=== PATIENT | female | born 1965 | race Caucasian/White ===

== ENCOUNTER 2017-05-24 20:55 | Inpatient (IN) | payer BC, OTHER ==
[~2017-05-24] VITALS: Ht 165.1 cm; Wt 129.7 kg
[2017-05-24] MEDS ORDERED: ASPI81TA28 PO (21:27)
[2017-05-24] MEDS ORDERED: GLC/500 PO (21:27)
[2017-05-24] MEDS ORDERED: ESCI1TAB10 PO (21:27)
[2017-05-24] MEDS ORDERED: ATOR-24 PO (21:27)
[2017-05-24] MEDS ORDERED: CLOP1TAB15 PO (21:27)
[2017-05-24] MEDS ORDERED: METO25TA56 PO (21:27)
[2017-05-24] MEDS ORDERED: RANO500T PO (21:27)
[2017-05-24 21:34] LABS: BASO % 0.3 %; BASO ABS # 0.02 K/uL (0-0.2); COMPLETE YES; EOS % 1.4 %; HEMATOCRIT 39.5 % (37-47); LYMPH % 35.1 %; LYMPH ABS # 2.58 K/uL (1.2-3.4); MEAN CORPUSCULAR HEMOGLOBIN 29.4 pg (25-34); MEAN CORPUSCULAR HGB CONC 32.7 g/dl (32-36); MEAN PLATELET VOLUME 9.5 fL (7.4-10.4); MONO % 9.3 %; NEUT % 53.9 %; PLATELET COUNT 227 K/uL (130-400); RED BLOOD COUNT 4.39 M/uL (4.2-5.4); WHITE BLOOD COUNT 7.35 K/uL (4.8-10.8)
--- NOTE | 2017-05-24 21:39 | DIAGNOSTIC IMAGING REPORT ---
CHEST ONE VIEW PORTABLE CLINICAL HISTORY: Chest pain. Altered mental status. COMPARISON STUDY: No previous studies for comparison. FINDINGS: Study is mildly compromised by suboptimal penetration. No pneumothorax or pleural effusion is present. Note is made of borderline cardiomegaly. There is no evidence of pulmonary edema. IMPRESSION: 1. No acute cardiopulmonary findings. 2. Borderline cardiomegaly. Electronically signed by: Gabriel Tovar M.D. 05/24/2017 9:38 PM Dictated Date/Time: 05/24/2017 9:36 PM
[2017-05-24 21:52] LABS: CALCIUM 8.6 mg/dl (8.5-10.1); CREATININE 1.1 mg/dl (0.60-1.20); POTASSIUM 4.1 mmol/L (3.5-5.1)
[2017-05-24 21:57] LABS: ALB/GLOB RATIO 0.9 (0.9-2); CKMB/CK RATIO 0.7 (0-3.0)
[2017-05-24 22:43] LABS: PROTHROMBIN TIME (PATIENT) 10.5 SECONDS (9.0-12.0)
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
[2017-05-24] MEDS ORDERED: NITROGLYCERIN 0.4 MG SL PER TAB CHARGE SL PRN (23:15)
[2017-05-24] MEDS ORDERED: MoRPHine SULFATE 2 MG/ML CARP IV PRN (23:15)
[2017-05-25] VITALS (7 sets, daily range): BP systolic 107–124; BP diastolic 73–80; PULSE 59–73; TEMP 36.6–36.8; O2SAT 95–97; Ht 165.1 cm; Wt 129.7 kg
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
[2017-05-25] MEDS: HEPARIN SOD 5000 UNIT/0.5 ML CARP SQ SCH ×2 (05:45→14:00)
[2017-05-25] MEDS ORDERED: METOPROLOL TARTRATE 25 MG TAB PO SCH (09:00)
[2017-05-25] MEDS ORDERED: RANOLAZINE 500 MG ER TAB PO SCH (09:00)
[2017-05-25] MEDS ORDERED: ASPIRIN 81 MG ECTAB PO SCH (09:00)
[2017-05-25] MEDS ORDERED: CLOPIDOGREL BISULFATE 75 MG TAB PO SCH (09:00)
[2017-05-25 09:22] LABS: BASO % 0.3 %; BASO ABS # 0.02 K/uL (0-0.2); COMPLETE YES; EOS % 1.5 %; HEMATOCRIT 38.4 % (37-47); IG% 0.3 %; LYMPH ABS # 2.33 K/uL (1.2-3.4); MEAN CELL VOLUME 89.7 fL (80-100); MEAN CORPUSCULAR HEMOGLOBIN 29.7 pg (25-34); MEAN CORPUSCULAR HGB CONC 33.1 g/dl (32-36); MEAN PLATELET VOLUME 9.3 fL (7.4-10.4); MONO % 7.5 %; NEUT % 52.4 %; PLATELET COUNT 199 K/uL (130-400); RED BLOOD COUNT 4.28 M/uL (4.2-5.4); WHITE BLOOD COUNT 6.13 K/uL (4.8-10.8)
[2017-05-25 09:52] LABS: BUN/CREATININE RATIO 17.8 (10-20); CALCIUM 8.4 mg/dl (8.5-10.1); CREATININE 0.91 mg/dl (0.60-1.20); POTASSIUM 3.8 mmol/L (3.5-5.1)
[2017-05-25] MEDS ORDERED: NTRSLP4 SL (14:26)
--- NOTE | 2017-05-25 14:31 | Discharge Instructions ---
Discharge Instructions Date of Service May 25, 2017. Admission Reason for Admission: Substernal Chest Pain Discharge Discharge Diagnosis / Problem: Chest pain Discharge Goals Goal(s): Improve disease control, Diagnostic testing, Therapeutic intervention Activity Recommendations Activity Limitations: as noted below Lifting Limitations: none Exercise/Sports Limitations: as tolerated (to limits set previously by your Wheel Shop Supervisor) Shower/Bathe: no limitations Driving or Machine Use: no limitations . Instructions / Follow-Up Instructions / Follow-Up You were admitted with chest pain. You had normal blood work and did NOT have a heart attack. Your chest xray was normal and you had a blood test called a D- dimer that was normal, making it not likely at all that you have a blood clot in your lungs either. You were seen by the Wheel Shop Supervisor who did not feel you needed any further testing of your heart. You should make sure you start taking your metoprolol in the evenings since you were not previously. Also, please work on avoiding highly stressful situations that bring on anxiety. Please follow up with your Wheel Shop Supervisor and your family doctor upon return to [place] in the next week. Current Hospital Diet Patient's current hospital diet: AHA Diet (Heart Healthy), Diabetes Type 2 Diet Discharge Diet Recommended Diet: AHA Diet (Heart Healthy), Diabetes Type 2 Diet Procedures Procedures Performed: Chest xray Pending Studies Studies pending at discharge: no Laboratory Results Last 24 Hours Test 05/24/17 21:20 05/24/17 21:26 05/24/17 22:02 05/25/17 00:53 White Blood Count 7.35 K/uL Red Blood Count 4.39 M/uL Hemoglobin 12.9 g/dL Hematocrit 39.5 % Mean Corpuscular Volume 90.0 fL Mean Corpuscular Hemoglobin 29.4 pg Mean Corpuscular Hemoglobin Concent 32.7 g/dl Platelet Count 227 K/uL Mean Platelet Volume 9.5 fL Neutrophils (%) (Auto) 53.9 % Lymphocytes (%) (Auto) 35.1 % Monocytes (%) (Auto) 9.3 % Eosinophils (%) (Auto) 1.4 % Basophils (%) (Auto) 0.3 % Neutrophils # (Auto) 3.97 K/uL Lymphocytes # (Auto) 2.58 K/uL Monocytes # (Auto) 0.68 K/uL Eosinophils # (Auto) 0.10 K/uL Basophils # (Auto) 0.02 K/uL RDW Standard Deviation 42.4 fL RDW Coefficient of Variation 13.0 % Immature Granulocyte % (Auto) 0.0 % Immature Granulocyte # (Auto) 0.00 K/uL Sodium Level 142 mmol/L Potassium Level 4.1 mmol/L Chloride Level 109 mmol/L Carbon Dioxide Level 26 mmol/L Anion Gap 7.0 mmol/L Blood Urea Nitrogen 20 mg/dl Creatinine 1.10 mg/dl Est Creatinine Clear Calc Drug Dose 83.0 ml/min Estimated GFR () 67.8 Estimated GFR (Non- 58.5 BUN/Creatinine Ratio 18.0 Random Glucose 111 mg/dl Calcium Level 8.6 mg/dl Total Bilirubin 0.3 mg/dl Aspartate Amino Transf (AST/SGOT) 25 U/L Alanine Aminotransferase (ALT/SGPT) 40 U/L Alkaline Phosphatase 87 U/L Total Creatine Kinase 150 U/L Creatine Kinase MB 1.1 ng/ml Creatine Kinase MB Ratio 0.7 Total Protein 7.1 gm/dl Albumin 3.4 gm/dl Globulin 3.7 gm/dl Albumin/Globulin Ratio 0.9 Bedside Troponin I < 0.030 ng/ml Prothrombin Time 10.5 SECONDS Prothromb Time International Ratio 1.0 Activated Partial Thromboplast Time 26.3 SECONDS Partial Thromboplastin Ratio 1.0 Troponin I < 0.015 ng/ml Test 05/25/17 06:53 05/25/17 07:15 05/25/17 09:07 05/25/17 11:08 Troponin I < 0.015 ng/ml Bedside Glucose 127 mg/dl 115 mg/dl White Blood Count 6.13 K/uL Red Blood Count 4.28 M/uL Hemoglobin 12.7 g/dL Hematocrit 38.4 % Mean Corpuscular Volume 89.7 fL Mean Corpuscular Hemoglobin 29.7 pg Mean Corpuscular Hemoglobin Concent 33.1 g/dl Platelet Count 199 K/uL Mean Platelet Volume 9.3 fL Neutrophils (%) (Auto) 52.4 % Lymphocytes (%) (Auto) 38.0 % Monocytes (%) (Auto) 7.5 % Eosinophils (%) (Auto) 1.5 % Basophils (%) (Auto) 0.3 % Neutrophils # (Auto) 3.21 K/uL Lymphocytes # (Auto) 2.33 K/uL Monocytes # (Auto) 0.46 K/uL Eosinophils # (Auto) 0.09 K/uL Basophils # (Auto) 0.02 K/uL RDW Standard Deviation 43.0 fL RDW Coefficient of Variation 13.2 % Immature Granulocyte % (Auto) 0.3 % Immature Granulocyte # (Auto) 0.02 K/uL D-Dimer 360 ug/L FEU Sodium Level 142 mmol/L Potassium Level 3.8 mmol/L Chloride Level 109 mmol/L Carbon Dioxide Level 27 mmol/L Anion Gap 6.0 mmol/L Blood Urea Nitrogen 16 mg/dl Creatinine 0.91 mg/dl Est Creatinine Clear Calc Drug Dose 100.5 ml/min Estimated GFR () 85.3 Estimated GFR (Non- 73.6 BUN/Creatinine Ratio 17.8 Random Glucose 117 mg/dl Calcium Level 8.4 mg/dl Magnesium Level 2.0 mg/dl Medical Emergencies . Who to Call and When: Medical Emergencies: If at any time you feel your situation is an emergency, please call 911 immediately. . Non-Emergent Contact Non-Emergency issues call your: Primary Care Provider, Wheel Shop Supervisor Call Non-Emergent contact if: your pain is not controlled, your pain is worsening, your pain is unusual for you, your pain is concerning you, you have any medication questions . . "Provider Documentation" section prepared by Frances Rao. . VTE Core Measure Inpt VTE Proph given/why not?: Unfractionated heparin SQ
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
--- NOTE | 2017-05-25 18:25 | CARDIOLOGY CONSULTATION ---
DATE OF CONSULTATION: 05/25/2017 REFERRING AND ATTENDING PHYSICIAN: Frances Rao M.D. CONSULTATION: Dionicio Pretty M.D. HISTORY OF PRESENT ILLNESS: The patient is a 51-year-old white female. History of coronary artery disease. On 09/25/2016, she sustained by her account an anterior ST elevation myocardial infarction secondary to a subtotal LAD occlusion. She had an emergency cardiac catheterization stent procedure. Records of this hospitalization are not available to me at the time of this dictation. She does not have her stent identification cards with her. The procedure was performed in [place], [place]. She and her have lived in [place] for the past 17 years. She states that at the time of 09/25/2016 catheterization, she was also noted to have an RCA stenosis. It was planned to treat this medically. However, in October of 2016, she had recurrent anginal type symptoms. This occurred on Friday. She suddenly saw her packing line operator on Friday. She underwent an elective catheterization and RCA stent procedure the following . She reports that good results were obtained at both stent sites. She states that she has no other significant residual coronary artery disease. She does not recollect the status of her LV systolic function. She does not know her left ventricular ejection fraction. Her last imaging study was in October 2016. This was an echocardiogram. She is closely followed by her packing line operator in [place], Dr. Gilliam. She is part of the [facility] heart group. At the time of her last visit, it was felt that the patient was doing well and that a 6-month followup was indicated. The patient did have an episode of anginal type chest discomfort on 04/25/2017. This occurred after physical and emotional stress. It lasted for approximately 20 minutes. Her packing line operator was aware of this episode of discomfort. No changes were made in her medical regimen or treatment plan. The patient states that all of her prior episodes of angina in September of 2016, October 2016, and April 2017 were associated with jaw discomfort radiating up into both ears. They were also associated with nausea. The patient and her are visiting from [place] in [facility] at this time. Last evening when she was under increased emotional stress secondary to an issue with one of her niece says she developed midscapular pressure type pain radiating into her upper retrosternal region. She had associated diaphoresis and dyspnea. She has not had any jaw discomfort. No ear discomfort. No neck discomfort. She took a sublingual nitroglycerin and the discomfort resolved within a few minutes. The total duration of the episode was approximately 5-10 minutes, by her recollection. Because of this episode, she came to the Emergency Department for evaluation. An electrocardiogram performed in the Emergency Department revealed no diagnostic ischemic ST or T-wave abnormalities. Because of her history of coronary artery disease, she was admitted to the telemetry unit. The patient states that since admission to the telemetry unit, she has had no further episodes of mid scapular or chest discomfort. No jaw discomfort. She denies any orthopnea or PND. No dyspnea walking in her room or around the halls. Stable exercise tolerance and stamina. No palpitations. No lightheadedness or syncope. She does have chronic dependent lower leg edema. She does wear a support hose. PAST MEDICAL HISTORY: 1. Coronary artery disease as above. As stated above, the patient does not know the type of stents in place in her LAD and RCA. Medical records from [place] are currently unavailable to me. 2. Hyperlipidemia. 3. Type 2 diabetes mellitus. 4. No history of hypertension. 5. Status post inguinal hernia repair. ALLERGIES AND ADVERSE DRUG REACTIONS: PENICILLIN, IODINATED CONTRAST DYE, CODEINE. Prior to her October cardiac catheterization procedure, she received steroids and Benadryl, electively. She does not recall whether she received any steroids with her September procedure. She does not recall having had any allergic reactions with her two cardiac catheterization and coronary intervention procedures. HER PRIOR ADVERSE REACTION TO CONTRAST DYE WAS WHEN SHE RECEIVED INTRAVENOUS CONTRAST DYE. SOCIAL HISTORY: The patient is and lives with her in [place]. No children. She does not smoke cigarettes. She does not drink alcohol. She works as a medical office specialist. FAMILY HISTORY: Her father had a myocardial infarction, underwent CABG surgery at age 50. Her paternal grandfather also underwent CABG surgery at age 50. MEDICATIONS: The patient had been on metoprolol tartrate 12.5 mg b.i.d. Because of difficulty in breaking the tablet in a half, she is only taking metoprolol tartrate once a day. This was 25 mg daily in the morning. CURRENT MEDICATIONS: Atorvastatin 40 mg daily, Lexapro 20 mg daily, aspirin 81 mg daily, clopidogrel 75 mg daily, metoprolol tartrate 25 mg b.i.d., ranolazine 500 mg b.i.d., subQ heparin 5000 units q. 8 hours, sublingual nitroglycerin p.r.n., and morphine p.r.n. The patient states she has been on ranolazine, aspirin, and clopidogrel since her September 2016 admission. REVIEW OF SYSTEMS: 1. As above. 2. All of her anginal episodes have occurred in the evening. 3. No bleeding complaints. 4. No myalgias or muscle weakness. 5. No cerebrovascular or peripheral vascular complaints suggestive of arterial insufficiency. 6. No current HEENT complaints. 7. No pulmonary, GI, or urinary complaints. PHYSICAL EXAMINATION: GENERAL: The patient is sitting up in her bed. No distress. HEAD: Normal. EYES: Pupils equal and round. Anicteric. Conjunctivae normal. No xanthelasma. NECK: No jugular venous distension. Carotids 2/2 bilaterally. Normal upstroke. No bruits. LUNGS: Normal respiratory effort. Clear. No rales or wheezes. HEART: PMI normal. No lifts or heaves. Regular rate and rhythm. S1, S2 normal. No S3 or S4. No murmur or rub. ABDOMEN: Soft. Nontender. No palpable masses or organomegaly. Normal bowel sounds. No bruits. EXTREMITIES: Trace pretibial edema. No calf tenderness. No cyanosis or clubbing. PULSES: Distal pulses in all extremities palpable. NEUROLOGICAL: Alert and oriented x3. Motor grossly intact. PSYCHIATRIC: Affect is normal. DATA: Electrocardiograms performed this admission reviewed by me show sinus rhythm, no ST segment deviation, shallow T inversion in V2. No diagnostic changes of myocardial ischemia or injury. Chest x-ray on May 24 reviewed by me. No heart failure. No infiltrate. Troponin Is less than 0.015. First was obtained at 12:53 a.m. today. Second at 6:53 a.m. Metabolic profile this morning with sodium 142, potassium 3.8, chloride 109, carbon dioxide 27, BUN 16, creatinine 0.91, random glucose 117. Magnesium 2.0. CBC today with WBC 6.13, hemoglobin 12.7, hematocrit 38.4, platelet count 199. ASSESSMENT: 1. Known coronary artery disease. Anterior myocardial infarction 09/25/2016. Treated with stent to a subtotal left anterior descending artery occlusion. This is by the patient's account. She also had a right coronary artery stenosis noted at that time. 2. She states that approximately 1 week after her September infarct, she was readmitted with chest pain. She had mild elevations of her cardiac enzymes. At that time, she was treated with medical therapy and discharged home. 3. Recurrent anginal symptoms October 2016. Subsequent repeat elective cardiac catheterization and then elective intervention to right coronary artery. She reports that she had no other significant coronary artery disease. 4. Her typical anginal symptoms have usually been associated with jaw and bilateral ear discomfort. This is in addition to chest pressure. 5. Episode of mid scapular tightness radiating into upper chest last evening is at time of increased emotional stress. Quick relief with 1 sublingual nitroglycerin tablet. No midscapular chest discomfort since then. She had no associated jaw or ear discomfort with last night episode. Electrocardiograms without any diagnostic changes of myocardial ischemia or injury. Cardiac enzymes negative for myocardial injury. 6. No evidence of pulmonary vascular congestion by signs or symptoms. 7. Chronic mild peripheral edema, likely secondary to primary venous insufficiency of her legs. 8. Heart rate and blood pressure well controlled. 9. Coronary artery disease risk factors include dyslipidemia, type 2 diabetes mellitus, and family history of coronary artery disease. She denies to me that she has a history of hypertension. She states that she actually sometimes as low blood pressures. Episode of lightheadedness in April and her systolic pressure was documented to be 97 mmHg. 10. No cerebrovascular or peripheral vascular complaints. 11. No bleeding complaints on dual antiplatelet therapy. 12. No symptoms of adverse reactions to her current medications. 13. She may have been experiencing inadequate beta blockade in the evening as she has only been taking her metoprolol in the morning. Of note, is that when she presented to the Emergency Department, her pulse rate was documented to be 92 beats per minute. RECOMMENDATIONS: 1. Agree with changing metoprolol tartrate to 25 mg b.i.d. 2. Continue aspirin, clopidogrel, and ranolazine. 3. The patient states that she would refuse any cardiac catheterization procedure at [facility]. 4. She had only a brief episode of anginal type chest discomfort last evening with increased emotional stress. None since then. There is no evidence of acute myocardial injury. She declines any cardiac catheterization procedure at [facility]. I do not feel that a stress test would be of any benefit. She states that even if that revealed evidence of myocardial ischemia, she would refuse the cardiac catheterization. Clinically, she does not require any urgent or emergent cardiac catheterization procedure. 5. The patient was given [facility]'s local phone number. She will be in town for the next week. If she has any cardiology questions or problems, she was asked to call this number. 6. She was instructed to seek medical attention immediately for any episodes of anginal type symptoms lasting more than 5 minutes. 7. She has already arranged follow up with her packing line operator in [place]. 8. Would have patient sign release forms and supply her a copy of the records from this hospitalization. This would include her electrocardiograms and labs. Also, her history and consult. 9. The patient was advised to attempt to avoid any increased emotional stress. 10. As there is no evidence of any acute myocardial ischemia or injury, based on electrocardiogram or cardiac enzymes, would discharge patient. The above assessment and recommendations were extensively discussed with the patient, her , and Dr. Rao.
[2017-05-25] MEDS ORDERED: ESCITALOPRAM OXALATE 20 MG TAB PO SCH (21:00)
[2017-05-25] MEDS ORDERED: ATORVASTATIN 40 MG TAB PO SCH (21:00)
== END 2017-05-25 15:17 | disposition home or self-care (01) | DRG 313 ==
LOC: EDBD 20:55 → C.EDA 20:57 → C.2T 23:16 → ENRESERV 23:27
PROVIDERS: ADMIT Internal Medicine; ATTEND Family Medicine
DX: R07.9 Chest pain, unspecified (principal); Z68.42 Body mass index [BMI] 45.0-49.9, adult; I20.9 Angina pectoris, unspecified; I25.2 Old myocardial infarction; I11.9 Hypertensive heart disease without heart failure; E11.9 Type 2 diabetes mellitus without complications; F41.9 Anxiety disorder, unspecified; E78.5 Hyperlipidemia, unspecified; E66.01 Morbid (severe) obesity due to excess calories; Z51.81 Encounter for therapeutic drug level monitoring; Z79.899 Other long term (current) drug therapy; Z79.82 Long term (current) use of aspirin; Z79.84 Long term (current) use of oral hypoglycemic drugs; Z79.02 Long term (current) use of antithrombotics/antiplatelets; Z95.5 Presence of coronary angioplasty implant and graft; Z87.891 Personal history of nicotine dependence; Z82.49 Family history of ischemic heart disease and other diseases of the circulatory system